=== PATIENT | female | born 1995 | race Caucasian/White ===

== ENCOUNTER 2017-04-05 03:21 | Emergency (ER) | payer BC ==
[~2017-04-05 03:21] MED LIST: BIRTH CONTROL PILL PO; MOTRIN600 M2 PO
[2017-04-05] MEDS ORDERED: PRENATAL VITAM1 EAC2 (03:28)
== END 2017-04-05 03:55 | disposition home or self-care (01) ==
LOC: SED 03:21
DX: O9A.212 Injury, poisoning and certain other consequences of external causes complicating pregnancy, second trimester (principal); S70.12XA Contusion of left thigh, initial encounter; Z3A.22 22 weeks gestation of pregnancy; W01.0XXA Fall on same level from slipping, tripping and stumbling without subsequent striking against object, initial encounter; Y92.009 Unspecified place in unspecified non-institutional (private) residence as the place of occurrence of the external cause
CPT/HCPCS: 99283